=== PATIENT | female | born 1975 | race Asian ===

== ENCOUNTER 2017-08-13 11:38 | Emergency (ER) | payer BC ==
[2017-08-13 15:17] LABS: INTERNATIONAL NORMAL RATI 1.1 UNITS (-); PARTIAL THROMBO TIME 31.2 SEC (22.5-37.2); PROTIME (NOT ORD) 13.7 SEC (12.0-14.5)
[2017-08-13 15:26] LABS: BASOPHILS 0.5 %; BASOPHILS ABSOLUTE 0.05 10/3/uL (0.0-0.16); EOSINOPHILS 1.3 %; EOSINOPHILS ABSOLUTE 0.13 10/3/uL (0.0-0.53); ER CBC TAT 0 Hrs 23 Mins; HEMATOCRIT 35.2 % (36.0-48.0); HEMOGLOBIN 10.8 g/dL (12.0-16.0); IMMATURE GRANULOCYTES 0.2 %; IMMATURE GRANULOCYTES ABSOLUTE 0.02 10/3/uL (0.0-0.11); LYMPHOCYTES 28.7 %; MANUAL DIFF NO %; MEAN CORPUS HGB CONC 30.7 g/dL (32.0-36.0); MEAN CORPUSCULAR HEMOGLOB 21.2 pg (26.0-34.0); MEAN PLATELET VOLUME 10.8 fL (9.2-13.0); MONOCYTES 6.5 %; MONOCYTES ABSOLUTE 0.63 10/3/uL (0.21-1.20); NEUTROPHILS 62.8 %; NEUTROPHILS ABSOLUTE 6.13 10/3/uL (2.02-8.40); PLATELET COUNT 281 10/3/uL (150-400); RBC DISTRIBUTION WIDTH 17.3 % (12.0-16.0); WHITE BLOOD CELLS 9.8 10/3/uL (4.5-10.5)
[2017-08-13 15:28] LABS: BUN (BLOOD UREA NITROGEN) 6 MG/DL (6-23); CALCIUM, SERUM 8.8 MG/DL (8.5-10.4); CHEST PAIN PROFILE TAT 0 Hrs 25 Mins; CHLORIDE, SERUM 104 MMOL/L (96-112); CO2 (CARBON DIOXIDE) 28 MMOL/L (24-34); CREATININE 0.52 MG/DL (0.55-1.02); GFR AFRICAN AMERICAN 138 ML/MIN (>=60); GFR NON AFRICAN AMERICAN 119 ML/MIN (>=60); GLUCOSE, SERUM 77 MG/DL (60-99); POTASSIUM, SERUM 3.6 MMOL/L (3.5-5.3); SODIUM, SERUM 139 MMOL/L (135-148); TROPONIN I <0.02 NG/ML (<0.05)
[2017-08-13 15:31] LABS: ANISOCYTOSIS 1+ (5-10/OIF) (0-5/OIF); MACROCYTES 1+ (5-10/OIF) (0-5/OIF); POLYCHROMASIA 1+ (2-5/OIF) (0-1/OIF)
[2017-08-13 15:32] LABS: BASOPHILIC STIPPLING 1+ (2-5/OIF) (0-1/OIF); PLATELET ESTIMATE ADQ (ADEQUATE)
== END 2017-08-13 19:05 | disposition home or self-care (01) ==
LOC: ER 11:38
PROVIDERS: Emergency Medicine
DX: R07.9 Chest pain, unspecified (principal)
CPT/HCPCS: 71020; 80048; 83690; 83735; 83880; 84484; 85025; 85610; 85730; 93005; 99285; A9270-GY